=== PATIENT | male | born 2000 | race Two or more races ===

== ENCOUNTER 2025-04-18 09:57 | Emergency (ER) | payer MEDICAID, SELFPAY ==
[2025-04-18 10:00] VITALS: BP 146/105; PULSE 102; RESP 18; TEMP 36.6; O2SAT 97; BMI 26.6
[2025-04-18 10:15] VITALS: PULSE 90; O2SAT 99
--- NOTE | 2025-04-18 10:25 | EDNOTE_ITS ---
ED General RME/HPI General Chief complaint: Wound/Laceration Stated complaint: LACERATION Time Seen by Provider: 04/18/25 10:25 Arrival date/time: 04/18/25 09:57 RME / HPI RME / HPI narrative: HPI is limited at this time as pt is currently speaking with Law enforcement Kristian is 25 y/o male with PMHx of CVA who comes in with open lacerations on his UE bilat. Pt is currently speaking with police currently. It is unsure how patient has gotten the lacerations but he has five of them. He is not on any blood thinners are this time. Related Data Previous Rx's ?Medication ?Instructions ?Recorded acetaminophen 500 mg capsule 1,000 mg (2 x 500 mg) PO Q6H PRN 05/26/21 fever or pain #30 caps cyclobenzaprine 10 mg tablet 10 mg PO TID PRN muscle s pasm #30 05/26/21 tabs hydrocodone 5 mg-acetaminophen 325 1 tab PO BID PRN pa in #14 tabs 05/26/21 mg tablet ibuprofen 800 mg tablet 800 mg PO TID PRN pain #30 t abs 05/26/21 ibuprofen 800 mg tablet 800 mg PO TID PRN pain #30 t abs 05/22/23 ibuprofen 600 mg tablet 600 mg PO Q6H #30 tabs 08/09 Allergies Allergy/AdvReac Type Severity Reaction Status Date / Time No Known Allergies Allergy Verified 04/18/25 10:33 Review of Systems Review of Systems Narrative Review of Systems: ROS is limited at this time as pt is currently speaking with law enforcement ED Exam Narrative Physical exam: General: AAOx3, NAD, HEENT: Moist mucous membranes, conjunctiva clear, EOMI, PERRLA, Cardiovascular: S1, S2, radial pulses +2 bilat, RRR Pulmonary: CTAB bilat no cough, no wheezing GI: No tenderness to light or deep palpitation, no guarding, rigidity, rebound tenderness or distension Extremities: No presence of trace or pitting edema in lower extremities bilaterally, dorsalis pedis pulses +2 bilaterally, one laceration on RUE toward wrist that is described in procedure section, 4 open lacerations with one open having subcutaneous tissue exposed and invaded described more in procedure section Neuro: AAOx3, no focal motor or sensory deficits in the UE or LE bilat Psych: Good judgement, thought and behavior Course Quality Measures none Orders Category Date Time Status HYDROcodone*/APAP 5/325 [[place] 5/325] Med 04/18/25 13:04 Discontinued 1 tab PO X1 ONE Tetanus, Diphtheria Toxoids/Pf [Tenivac-Adult] Med 04/18/25 12:14 Discontinued 0.5 ml IMI .ONCE ONE ceFAZolin [Ancef] 1 gm Med 04/18/25 12:15 Discontinued Sodium Chloride 0.9% (Pop) [NS 0.9% mini bag] 100 ml IV X1 Vital Signs Vital signs: Vital Signs Temperature 97.9 F 04/18/25 10:00 Pulse Rate 102 H 04/18/25 10:00 Respiratory Rate 18 04/18/25 10:00 Blood Pressure 146/105 H 04/18/25 10:00 Pulse Oximetry (%) 97 04/18/25 10:00 Oxygen Delivery Method Room Air 04/18/25 10:00 PROCEDURES: Laceration Laceration 1: Site: upper extremity Side (If applicable): left Size (cm): 3 Description: linear Depth: simple, single layer Local Anesthetic: lidocaine 1% Amount of anesthesia used (mL): 5 Pre-repair: wound explored and irrigated extensively Skin layer closed with: nylon Suture size (cm): 4-0 Number of sutures: 6 Technique: simple, interrupted Subcutaneous layer closed with: vicryl Size: 4-0 Number of sutures: 3 Laceration 2: Site: upper extremity Side (If applicable): left Size (cm): 2 Description: linear Depth: simple, single layer Local Anesthetic: lidocaine 1% Amount of anesthesia used (mL): 2 Pre-repair: wound explored and irrigated extensively Skin layer closed with: nylon Suture size (cm): 4-0 Number of sutures: 4 Technique: simple, interrupted Laceration 3: Site: upper extremity Side (If applicable): left Size (cm): 1 Description: linear Depth: simple, single layer Local Anesthetic: lidocaine 1% Amount of anesthesia used (mL): 1 Pre-repair: wound explored and irrigated extensively Skin layer closed with: nylon Suture size (cm): 4-0 Number of sutures: 2 Technique: simple, interrupted Laceration 4: Site: upper extremity Side (If applicable): left Size (cm): 2 Description: linear Depth: simple, single layer Local Anesthetic: lidocaine 1% Amount of anesthesia used (mL): 2 Pre-repair: wound explored and irrigated extensively Skin layer closed with: nylon Suture size (cm): 4-0 Number of sutures: 5 Technique: simple, interrupted Laceration 5: Site: upper extremity (wrist) Side (If applicable): right Size (cm): 2 Description: linear Depth: simple, single layer Local Anesthetic: lidocaine 1% Amount of anesthesia used (mL): 4 Pre-repair: wound explored and irrigated extensively Skin layer closed with: nylon Suture size (cm): 4-0 Number of sutures: 10 Technique: simple, interrupted Discharge Plan Plan Patient Disposition: Care Home/Court/Law Prescriptions/Referrals Prescriptions/Med Rec: No Action cyclobenzaprine 10 mg tablet 10 mg PO TID PRN (Reason: muscle spasm) Qty: 30 0RF ibuprofen 800 mg tablet 800 mg PO TID PRN (Reason: pain) Qty: 30 0RF acetaminophen 500 mg capsule 1,000 mg PO Q6H PRN (Reason: fever or pain) Qty: 30 0RF hydrocodone-acetaminophen 5-325 mg tablet 1 tab PO BID MDD 4 PRN (Reason: pain) Qty: 14 0RF ibuprofen 800 mg tablet 800 mg PO TID PRN (Reason: pain) Qty: 30 0RF ibuprofen 600 mg tablet 600 mg PO Q6H Qty: 30 0RF Referrals: No Primary/Family,Physician [Primary Care Provider] - In 1 week Problem List Clinical Impression: Laceration Patient/Caregiver Discharge Instructions Additional Instructions: Discharge instructions Follow-up with your PCP within 1 week Take your medicines Keflex as prescribed Have your PCP or a private doctor remove your stitches in 10-14 days Return to ED if your symptoms worsen or return Print Language: Vietnamese MDM Narrative MDM hospital course (for use when minimal MDM required): 1317: Ancef 1g x1, [place] x1, Tetanus shot. S/p laceration repair. Pt is medically cleared for discharge Medication Administration(s) Medication Administration History Discontinued Medications Hydrocodone Bitart/Acetaminophen (Hydrocodone/Apap 5/325 Tablet) 1 tab PO X1 ONE Stop: 04/18/25 13:05 Cefazolin Sodium 1 gm/ Sodium (Chloride) 100 mls @ 200 mls/hr IV X1 ONE Stop: 04/18/25 12:44 Last Admin: 04/18/25 12:29 Dose: 200 mls/hr Documented By: GRECIA Tetanus/Diphtheria Toxoids (Tetanus,Diphtheria Toxoids/Pf (Adult) 0.5 Ml Syringe) 0.5 ml IMi .ONCE ONE Stop: 04/18/25 12:15 Last Admin: 04/18/25 12:28 Dose: 0.5 ml Documented By: GRECIA
[2025-04-18] MEDS: TETANUS,DIPHTHERIA TOXOIDS/PF (ADULT) 0.5 ML SYRINGE IMi (12:28)
[2025-04-18] MEDS: ceFAZolin 1 GM in SODIUM CHLORIDE 0.9% (POP) 100 ML IV (12:29)
[2025-04-18 12:35] VITALS: BP 141/84; PULSE 89; RESP 18; O2SAT 96
[2025-04-18] MEDS: HYDROcodone/APAP 5/325 TABLET 1 TAB PO (13:39)
[2025-04-18 13:41] VITALS: BP 144/98
--- NOTE | 2025-04-18 13:51 | PC.NURSE ---
PT BIBA W/PPD ALSO AROUND 1030. PT HAD DEEP LACERATIONS TO LEFT CREASE OF ELBOW, WITH VISIBLE TISSUE, LOOKED LIKE THERE WAS MULTIPLE CUTS TO SAME AREA. THERE WAS ALSO MULTIPLE CUTS TO LEFT AND RIGHT WRIST THAT REQUIRED STITCHES.
== END 2025-04-18 13:45 ==
DX: S41.112A Laceration without foreign body of left upper arm, initial encounter (principal); W45.8XXA Other foreign body or object entering through skin, initial encounter
CPT/HCPCS: 12002; 90471; 90714; 96365; 99283; J0690; A9270